=== PATIENT | male | born 1950 | race Caucasian/White ===

== ENCOUNTER 2019-10-16 13:59 | Outpatient (CLI) | payer BC ==
--- NOTE | 2019-10-16 14:42 | ULT ---
US Renal Bilateral STANDARD History: Chronic renal failure stage I Comparison: None. Findings: Real-time grayscale color evaluation of the kidneys and urinary bladder was performed. The right kidney measures 10.6 x 5.2 x 5.3 cm without mass, hydronephrosis or abnormal calcifications . The left kidney measures 10.3 x 5.4 x 5.2 cm without mass, hydronephrosis or abnormal calcifications. Both ureteral jets are seen. The prevoid urinary bladder volume is 499 mL. The post void volume is 24 2 mL. Prostate is mildly enlarged. Impression: 1. No evidence for obstructive uropathy. 2. Increased post void urinary bladder residual of 242 mL. 3. Mild prostatomegaly.
== END 2019-10-16 14:00 | disposition home or self-care (01) ==
LOC: BICULT 13:59
PROVIDERS: ATTEND Urology
DX: N40.1 Benign prostatic hyperplasia with lower urinary tract symptoms (principal); N18.1 Chronic kidney disease, stage 1; R33.9 Retention of urine, unspecified
CPT/HCPCS: 76770

== ENCOUNTER 2019-12-07 06:37 | Outpatient (CLI) | payer BC, OTHER ==
[2019-12-07 10:41] LABS: Bilirubin Neg (Negative); Blood, Urine Negative (Negative); Clarity Clear (Clear); Glucose, Urine (Dipstick) Normal (Negative); Ketone, Urine Negative (Negative); Leukocyte Negative (Negative); Nitrite Negative (Negative); Protein, Urine (Dipstick) Negative (Neg-Trace); Urobilinogen Normal mg/dL (Less than 2)
[2019-12-07 10:44] LABS: Hemoglobin 12.9 g/dL (14.0-18.0); Mean Corpuscular HGB CONC 31.9 G/DL (32.0-36.0); Mean Corpuscular Hemoglobin 30.1 PG (27.0-33.0); Mean Corpuscular Volume 94.4 fl (80.0-100.0); Mean Platelet Volume 9.9 fl (7.4-10.4); Platelet Count 186 10x3/uL (130-400); RBC Distribution Width 14.9 % (11.5-14.5); Red Blood Cell (RBC) Count 4.29 10x6/uL (4.40-5.80); White Blood Cell (WBC) Count 4.1 10x3/uL (4.5-11.0)
[2019-12-07 10:49] LABS: RBC/HPF 0-3 HPF (0-3); Squamous Epithelial None Seen HPF (0-3); WBC/HPF None Seen HPF (0-3)
[2019-12-07 10:50] LABS: Bacteria/HPF None Seen HPF (None Seen)
[2019-12-07 11:05] LABS: Anion Gap 18 mmol/L (10-20); BUN (Urea Nitrogen) 27 mg/dL (8.4-25.7); Calc. Creatinine Clearance 0 mL/min (70-130); Calcium 9.2 mg/dL (7.8-10.44); Carbon Dioxide 21 mmol/L (23-31); Chloride 108 mmol/L (98-107); Estimated GFR-MDRD 39; Glucose 118 mg/dL (83-110); INR-International Normal Ratio 1.1; PTT 26.6 sec (22.0-33.0); Potassium 4.4 mmol/L (3.5-5.1); Prothrombin Time 11.6 sec (9.5-12.1); Sodium 143 mmol/L (136-145)
[2019-12-07 17:49] LABS: SARS-CoV-2 MS2 Positive; SARS-CoV-2 N Gene Negative; SARS-CoV-2 S Gene Negative; SARS-CoV-2 by NAA Not Detected (NotDetected); SARS-CoV-2 orf1ab Negative
--- NOTE | 2019-12-12 19:23 | EKG ---
Test Reason : Blood Pressure : / mmHG Vent. Rate : 072 BPM Atrial Rate : 072 BPM P-R Int : 148 ms QRS Dur : 098 ms QT Int : 410 ms P-R-T Axes : 070 073 040 degrees QTc Int : 448 ms Normal sinus rhythm Normal ECG No previous ECGs available Confirmed by MILAGROS JAMES, DR. Zimmerman ([id number]) on 12/12/2019 7:23:15 PM Referred By: KACY Confirmed By:DR. Erasmo LINARES MD
== END 2019-12-07 06:38 | disposition home or self-care (01) ==
LOC: LABBT 06:37
PROVIDERS: ATTEND Urology
DX: Z01.818 Encounter for other preprocedural examination (principal); Z12.5 Encounter for screening for malignant neoplasm of prostate; E11.22 Type 2 diabetes mellitus with diabetic chronic kidney disease; N18.1 Chronic kidney disease, stage 1; R35.1 Nocturia; N40.1 Benign prostatic hyperplasia with lower urinary tract symptoms; R33.9 Retention of urine, unspecified; R97.20 Elevated prostate specific antigen [PSA]; Z20.828 Contact with and (suspected) exposure to other viral communicable diseases
CPT/HCPCS: 80048; 81001; 85027; 85610; 85730; 87086; 87635; 93005; 93010; U0003

== ENCOUNTER 2019-12-12 05:55 | Day surgery (SDC) | payer BC ==
[2019-12-11 09:23] VITALS: BMI 27.3
[2019-12-12] MEDS ORDERED: Levofloxacin 500 mg/D5W 100 ml Premix Bag ONE (06:07)
[2019-12-12] MEDS ORDERED: Fentanyl 100 MCG/2 ML VIAL ONE (06:14)
[2019-12-12] MEDS ORDERED: Famotidine/PF 20 mg/2ml Vial ONE (06:14)
[2019-12-12] MEDS ORDERED: PROPOFOL 40 ML ONE (06:44)
[2019-12-12] MEDS ORDERED: Midazolam HCl 2 mg/2 ml Vial ONE (06:44)
[2019-12-12] MEDS ORDERED: Metoclopramide HCl 10 MG/2 ML VIAL ONE ×2 (07:18→09:11)
[2019-12-12] MEDS ORDERED: Ondansetron PF 4 MG/2 ML Vial ONE ×2 (07:18→09:11)
--- NOTE | 2019-12-12 08:19 | OP ---
DATE OF PROCEDURE: 12/12/2019 PRIMARY CARE PHYSICIAN: Nilay Maya MD PREOPERATIVE DIAGNOSES: 1. A 69-year-old male with history of elevated PSA, biopsy negative for malignancy. 2. Benign prostatic hyperplasia with chronic incomplete emptying, IPSS score of 15, presenting PVR 348 mL. POSTOPERATIVE DIAGNOSES: 1. A 69-year-old male with history of elevated PSA, biopsy negative for malignancy. 2. Benign prostatic hyperplasia with chronic incomplete emptying, IPSS score of 15, presenting PVR 348 mL. PROCEDURES PERFORMED: Cystoscopy, UroLift implant x7. ANESTHESIA: TIVA. COMPLICATIONS: None apparent. DISPOSITION: To recovery room in stable condition. INDICATIONS FOR PROCEDURE AND HISTORY: Mr. Glaser is a 69-year-old pleasant male, referred to me for BPH symptoms of frequency or urgency with an IPSS score of 15. He has been on dual medical therapy since 2004 and continues to have chronic incomplete emptying. He underwent prostate biopsy negative for malignancy and presents today for UroLift. Alternatives of the procedure including ongoing observation, more definitive procedure such as TURP was discussed with him in detail. With risks and benefits outlined, he desired to proceed with UroLift. Risks and complications of the procedure were discussed with him in detail including, but not limited to, bleeding, pain, infection, injury to adjacent organs, urosepsis, ureteral bladder injury, chronic pain, bleeding. All questions answered to his satisfaction and desired to proceed. DESCRIPTION OF PROCEDURE: After an informed consent was signed, the patient was taken to the operating room, placed in a dorsal lithotomy position with the genital area prepped and draped in the usual surgical sterile fashion. A 21-[place] cystoscope was utilized for cystoscopy, which demonstrated normal anterior urethra. Prostatic urethra again was staged demonstrating bilobar hyperplasia with [id number] obstruction. No intravesical median lobe was noted. Bladder was entered, which demonstrated diffuse bladder trabeculation consistent with chronic outlet obstruction. The UOs were 4 to 5 mm proximal to the bladder neck. At this time, we transitioned to the UroLift implant device with a visual obturator. Once in the bladder, we transitioned to the implant device. We stayed about 1.5 cm proximal to the bladder neck, and total of 3 implants on the left lateral lobe, total of 4 on the right was performed. At the end of the procedure, he had a great anterior channel with wide bladder neck. Minimal bleeding was noted and an 18-Citizen [place] 30 mL Du catheter was placed. We will monitor him for degree of hematuria. Pending postop recovery, the patient may be discharged with indwelling Du catheter for voiding trial tomorrow versus voiding trial in recovery room. Postop medications sent to his pharmacy at [facility]. Job ID: [id number] [id number]
[2019-12-12] MEDS ORDERED: Phenazopyridine HCl 100 MG TAB ONE (09:01)
[2019-12-12] MEDS ORDERED: Lidocaine 1% PF 5 ML VIAL ONE (09:11)
== END 2019-12-12 12:30 | disposition home or self-care (01) ==
LOC: SDC 05:55
PROVIDERS: ATTEND Urology
PROC: 0T7D8DZ Dilation of Urethra with Intraluminal Device, Via Natural or Artificial Opening Endoscopic (ICD-10-PCS; principal; 2019-12-12)
DX: N40.1 Benign prostatic hyperplasia with lower urinary tract symptoms (principal); R39.14 Feeling of incomplete bladder emptying; R35.0 Frequency of micturition; R39.15 Urgency of urination; N39.498 Other specified urinary incontinence; N32.81 Overactive bladder; I12.9 Hypertensive chronic kidney disease with stage 1 through stage 4 chronic kidney disease, or unspecified chronic kidney disease; E11.22 Type 2 diabetes mellitus with diabetic chronic kidney disease; N18.1 Chronic kidney disease, stage 1; E78.5 Hyperlipidemia, unspecified; Z79.84 Long term (current) use of oral hypoglycemic drugs; Z79.899 Other long term (current) drug therapy; Z80.42 Family history of malignant neoplasm of prostate
CPT/HCPCS: C1889; J1956; J2250; J2405; J2704; J2765; J3010; S0028

== ENCOUNTER 2020-11-28 07:45 | Outpatient (CLI) | payer BC, MEDICARE ==
[2020-11-28 09:18] LABS: Hemoglobin 12.7 g/dL (13.5-17.5); Mean Corpuscular HGB CONC 32.2 g/dL (32.0-36.0); Mean Corpuscular Hemoglobin 30.3 pg (27.0-33.0); Mean Platelet Volume 9.2 fl (7.4-10.4); Platelet Count 223 10x3/uL (150-450); RBC Distribution Width 13.6 % (11.5-14.5); Red Blood Cell (RBC) Count 4.19 10x6/uL (4.32-5.72); White Blood Cell (WBC) Count 4.2 10x3/uL (3.5-10.5)
[2020-11-28 09:26] LABS: PTT 24.7 sec (22.0-33.0); Prothrombin Time 11.5 sec (9.5-12.1)
[2020-11-28 09:29] LABS: Bilirubin Neg (Negative); Blood, Urine Negative (Negative); Clarity Clear (Clear); Glucose, Urine (Dipstick) Normal (Negative); Ketone, Urine Negative (Negative); Leukocyte Negative (Negative); Nitrite Negative (Negative); Protein, Urine (Dipstick) Negative (Neg-Trace); Urobilinogen Normal mg/dL (Less than 2)
[2020-11-28 09:39] LABS: Anion Gap 12 mmol/L (10-20); BUN (Urea Nitrogen) 24 mg/dL (8.4-25.7); Calc. Creatinine Clearance 0 mL/min (70-130); Carbon Dioxide 25 mmol/L (23-31); Chloride 109 mmol/L (98-107); Glucose 102 mg/dL (83-110); Potassium 4.5 mmol/L (3.5-5.1); Sodium 141 mmol/L (136-145)
[2020-11-28 10:04] LABS: Bacteria/HPF None Seen HPF (None Seen); RBC/HPF None Seen HPF (0-3); Squamous Epithelial None Seen HPF (0-3); WBC/HPF None Seen HPF (0-3)
[2020-11-28 21:09] LABS: SARS-CoV-2 PCR by NAA Not Detected (NotDetected)
== END 2020-11-28 07:46 | disposition home or self-care (01) ==
LOC: LABBT 07:45
PROVIDERS: ATTEND Urology
DX: Z01.812 Encounter for preprocedural laboratory examination (principal); Z12.5 Encounter for screening for malignant neoplasm of prostate; N40.1 Benign prostatic hyperplasia with lower urinary tract symptoms; E11.22 Type 2 diabetes mellitus with diabetic chronic kidney disease; N18.1 Chronic kidney disease, stage 1; R35.1 Nocturia; R33.8 Other retention of urine; R97.20 Elevated prostate specific antigen [PSA]; Z80.42 Family history of malignant neoplasm of prostate; Z20.822 Contact with and (suspected) exposure to COVID-19
CPT/HCPCS: 80048; 81001; 85027; 85610; 85730; 87086; U0003; U0005

== ENCOUNTER 2020-12-03 08:41 | Observation (INO) | payer BC, MEDICARE ==
[2020-12-02 13:25] VITALS: BMI 28.2
[2020-12-03] MEDS ORDERED: PROPOFOL 200 MG/20 ML VIAL ONE (11:38)
[2020-12-03] MEDS ORDERED: Glycopyrrolate 0.2 MG/ML 5 ML SYRINGE ONE (11:38)
[2020-12-03] MEDS ORDERED: Lidocaine 1% PF 5 ML VIAL ONE (11:38)
[2020-12-03] MEDS ORDERED: Ondansetron PF 4 MG/2 ML Vial ONE (11:38)
[2020-12-03] MEDS ORDERED: PHENYLEPHRINE-NS 100 MCG/ML 10 ML SYRINGE ONE (11:38)
[2020-12-03] MEDS ORDERED: ePHEDrine 50 MG/ML VIAL ONE (11:38)
[2020-12-03] MEDS ORDERED: Fentanyl 100 MCG/2 ML VIAL ONE (11:49)
[2020-12-03] MEDS ORDERED: Midazolam HCl 2 mg/2 ml Vial ONE (11:49)
[2020-12-03] MEDS ORDERED: Levofloxacin 500 mg/D5W 100 ml Premix Bag ONE (11:55)
[2020-12-03] MEDS ORDERED: Morphine 4 MG/ML VIAL SLOW IVP PRN ×2 (14:18→15:06)
[2020-12-03] MEDS ORDERED: HYDROcodone/Acetaminophen 5/325 mg Tablet PO PRN ×2 (14:18)
[2020-12-03] MEDS ORDERED: hydrALAZINE 20 MG/ML VIAL SLOW IVP PRN ×2 (14:18)
[2020-12-03] MEDS ORDERED: Oxybutynin 5 MG TAB PO PRN (14:18)
[2020-12-03] MEDS ORDERED: Mag-Al 1200 mg/1200 mg/30 ML UDCUP PO PRN (14:18)
[2020-12-03] MEDS ORDERED: diphenhydrAMINE 50 MG/ML VIAL IVP PRN (14:18)
[2020-12-03] MEDS ORDERED: Dextrose 5% in Water 1,000 ML IV PRN (14:18)
[2020-12-03] MEDS ORDERED: Ondansetron PF 4 MG/2 ML Vial IVP PRN (14:18)
[2020-12-03] MEDS ORDERED: Insulin Regular 300 UNITS/3 ML VIAL SC PRN (14:18)
[2020-12-03] MEDS ORDERED: Dextrose 50% Abboject 50 ML SYRINGE SLOW IVP PRN (14:18)
[2020-12-03] MEDS ORDERED: Acetaminophen 500 MG TAB PO PRN (14:18)
[2020-12-03] MEDS ORDERED: Oxybutynin 5 MG TAB ONE (14:36)
[2020-12-03] MEDS ORDERED: Phenazopyridine HCl 100 MG TAB PO PRN (15:11)
[2020-12-03 15:16] LABS: #Eosinphils 0.1 thou/uL (0.0-0.7); #Lymphocytes 1.5 thou/uL (1.20-3.40); #Monocytes 0.3 thou/uL (0.11-0.59); %Eosinophils 2.2 % (0.0-10.0); %Lymphocytes 39.2 % (21.0-51.0); %Monocytes 7.6 % (0.0-10.0); Hemoglobin 12.8 g/dL (14.0-18.0); Mean Corpuscular HGB CONC 33.6 g/dL (32.0-36.0); Mean Corpuscular Hemoglobin 32.2 pg (27.0-31.0); Mean Corpuscular Volume 95.8 fL (78.0-98.0); Mean Platelet Volume 6.4 fL (7.4-10.4); Platelet Count 220 thou/uL (130-400); RBC Distribution Width 12.6 % (11.5-14.5); Red Blood Cell (RBC) Count 3.98 mill/uL (4.70-6.10); White Blood Cell (WBC) Count 3.9 thou/uL (4.8-10.8)
[2020-12-03 15:37] LABS: Anion Gap 10 mmol/L (10-20); BUN (Urea Nitrogen) 24 mg/dL (8.4-25.7); Calc. Creatinine Clearance 56 mL/min (70-130); Calcium 8.9 mg/dL (7.8-10.44); Carbon Dioxide 26 mmol/L (23-31); Chloride 110 mmol/L (98-107); Glucose 115 mg/dL (83-110); Potassium 4.4 mmol/L (3.5-5.1); Sodium 142 mmol/L (136-145)
[2020-12-03] MEDS: Sodium Chloride 0.9% 1,000 ML IV SCH ×2 (16:09→21:15)
[2020-12-03] MEDS ORDERED: Fenofibrate Nanocrystallized 145 MG TAB PO SCH (21:00)
[2020-12-03] MEDS ORDERED: [UNRECOGNIZED DRUG - OTHER] PO SCH (21:00)
[2020-12-03] MEDS ORDERED: Tamsulosin HCl 0.4 MG CAP PO SCH (21:00)
[2020-12-03] MEDS ORDERED: Pioglitazone HCl 15 MG TAB PO SCH (21:00)
[2020-12-03] MEDS ORDERED: Atorvastatin Calcium 20 MG TAB PO SCH (21:00)
[2020-12-03] MEDS: Docusate 100 MG CAP PO SCH (21:12)
[2020-12-04 05:32] LABS: #Eosinphils 0.1 thou/uL (0.0-0.7); #Lymphocytes 1.3 thou/uL (1.20-3.40); #Monocytes 0.4 thou/uL (0.11-0.59); #Neutrophils 4.2 thou/uL (1.40-6.50); %Basophils 0.2 % (0.0-1.0); %Eosinophils 1.2 % (0.0-10.0); %Monocytes 6.2 % (0.0-10.0); %Neutrophils 70.5 % (42.0-75.0); Mean Corpuscular Hemoglobin 31.3 pg (27.0-31.0); Mean Corpuscular Volume 94.7 fL (78.0-98.0); Mean Platelet Volume 6.7 fL (7.4-10.4); Platelet Count 217 thou/uL (130-400); RBC Distribution Width 12.6 % (11.5-14.5); Red Blood Cell (RBC) Count 3.83 mill/uL (4.70-6.10)
[2020-12-04 06:03] LABS: Anion Gap 11 mmol/L (10-20); BUN (Urea Nitrogen) 23 mg/dL (8.4-25.7); Calc. Creatinine Clearance 56 mL/min (70-130); Calcium 8.7 mg/dL (7.8-10.44); Carbon Dioxide 25 mmol/L (23-31); Chloride 110 mmol/L (98-107); Glucose 96 mg/dL (83-110); Potassium 4.1 mmol/L (3.5-5.1); Sodium 142 mmol/L (136-145)
[2020-12-04] MEDS ORDERED: cefTRIAXone\\ROCEPHIN 1 GM in Sodium Chloride 0.9% 100 ML IVPB SCH (08:00)
[2020-12-04] MEDS ORDERED: Amlodipine 10 MG TAB PO SCH (09:00)
[2020-12-04] MEDS ORDERED: Tamsulosin HCl 0.4 MG CAP PO SCH (09:00)
[2020-12-04] MEDS ORDERED: Lisinopril 20 MG TAB PO SCH (09:00)
[2020-12-04] MEDS ORDERED: Dutasteride 0.5 MG CAP PO SCH (09:00)
[2020-12-04] MEDS ORDERED: Loratadine 10 MG TAB PO SCH (09:00)
[2020-12-04] MEDS: Docusate 100 MG CAP PO SCH (09:09)
[2020-12-04] MEDS: Sodium Chloride 0.9% 1,000 ML IV SCH (10:44)
[2020-12-04 11:51] VITALS: BP 131/68; TEMP 98.2
== END 2020-12-04 12:15 | disposition home or self-care (01) ==
LOC: SDC 08:41 → SJJU 14:18
PROVIDERS: ADMIT Urology; ATTEND Urology
PROC: 0V507ZZ Destruction of Prostate, Via Natural or Artificial Opening (ICD-10-PCS; principal; 2020-12-03)
DX: N40.1 Benign prostatic hyperplasia with lower urinary tract symptoms (principal); R39.14 Feeling of incomplete bladder emptying; N13.8 Other obstructive and reflux uropathy; N39.41 Urge incontinence; R35.0 Frequency of micturition; R33.8 Other retention of urine; N32.81 Overactive bladder; I12.9 Hypertensive chronic kidney disease with stage 1 through stage 4 chronic kidney disease, or unspecified chronic kidney disease; E11.22 Type 2 diabetes mellitus with diabetic chronic kidney disease; N18.1 Chronic kidney disease, stage 1; E78.5 Hyperlipidemia, unspecified; Z80.42 Family history of malignant neoplasm of prostate; Z79.84 Long term (current) use of oral hypoglycemic drugs; Z79.899 Other long term (current) drug therapy; Z98.890 Other specified postprocedural states
CPT/HCPCS: 36415; 36416; 80048; 85025; 88305; 96374; G0378; J0696; J1956; J2250; J2405; J2704; J3010; J3490; J7050

== ENCOUNTER 2021-06-15 03:31 | Emergency (ER) | payer BC ==
[2021-06-15] MEDS ORDERED: Morphine 4 MG/ML VIAL ONE (04:03)
[2021-06-15] MEDS ORDERED: Ondansetron PF 4 MG/2 ML Vial ONE (04:03)
[2021-06-15 04:08] LABS: #Eosinphils 0.1 thou/uL (0.0-0.7); #Lymphocytes 1.6 thou/uL (1.20-3.40); #Monocytes 0.5 thou/uL (0.11-0.59); #Neutrophils 6.4 thou/uL (1.40-6.50); %Basophils 0.2 % (0.0-1.0); %Eosinophils 1.4 % (0.0-10.0); %Lymphocytes 18.7 % (21.0-51.0); %Monocytes 6.3 % (0.0-10.0); %Neutrophils 73.5 % (42.0-75.0); Hemoglobin 13.9 g/dL (14.0-18.0); Mean Corpuscular HGB CONC 35.4 g/dL (32.0-36.0); Mean Corpuscular Hemoglobin 34.2 pg (27.0-31.0); Mean Corpuscular Volume 96.5 fL (78.0-98.0); Mean Platelet Volume 6.5 fL (7.4-10.4); Platelet Count 238 thou/uL (130-400); RBC Distribution Width 12.6 % (11.5-14.5); Red Blood Cell (RBC) Count 4.07 mill/uL (4.70-6.10); White Blood Cell (WBC) Count 8.6 thou/uL (4.8-10.8)
[2021-06-15 04:36] LABS: ALT (SGPT) 20 U/L (8-55); AST (SGOT) 18 U/L (5-34); Alkaline Phosphatase 47 U/L (40-110); Anion Gap 13 mmol/L (10-20); BUN (Urea Nitrogen) 25 mg/dL (8.4-25.7); Bilirubin, Total 0.7 mg/dL (0.2-1.2); Calc. Creatinine Clearance 0 mL/min (70-130); Calcium 9.4 mg/dL (7.8-10.44); Carbon Dioxide 26 mmol/L (23-31); Chloride 104 mmol/L (98-107); Globulin 2.6 g/dL (2.4-3.5); Glucose 200 mg/dL (83-110); Lipase 46 U/L (8-78); Potassium 3.8 mmol/L (3.5-5.1); Protein, Total 6.6 g/dL (5.8-8.1); Sodium 139 mmol/L (136-145)
[2021-06-15 06:09] LABS: Bacteria/HPF None Seen HPF (None Seen); Bilirubin Negative (Negative); Blood, Urine Negative (Negative); Clarity Turbid (Clear); Glucose, Urine (Dipstick) Normal (Negative); Ketone, Urine Negative (Negative); Leukocyte 500 Leu/uL (Negative); Nitrite Negative (Negative); Protein, Urine (Dipstick) 10 mg/dL (Neg-Trace); RBC/HPF 0-3 HPF (0-3); Specific Gravity, Urine 1.034 (1.002-1.036); Squamous Epithelial None Seen HPF (0-3); Urobilinogen Normal mg/dL (Less than 2); WBC/HPF Greater than 50 HPF (0-3); pH, Urine 6.5 (5.0-9.0)
== END 2021-06-15 06:58 | disposition home or self-care (01) ==
LOC: ERS 03:31
DX: R10.13 Epigastric pain (principal); N39.0 Urinary tract infection, site not specified; R11.2 Nausea with vomiting, unspecified; E78.5 Hyperlipidemia, unspecified; E11.22 Type 2 diabetes mellitus with diabetic chronic kidney disease; I12.9 Hypertensive chronic kidney disease with stage 1 through stage 4 chronic kidney disease, or unspecified chronic kidney disease; N18.1 Chronic kidney disease, stage 1
CPT/HCPCS: 36415; 74177; 80053; 81003; 81015; 83690; 84484; 85025; 87086; 93005; 96374; 96375; J2270; J2405

== ENCOUNTER 2021-10-05 00:41 | Emergency (ER) | payer BC ==
[2021-10-05 01:37] LABS: #Basophils 0.1 thou/uL (0.0-0.2); #Eosinphils 0.1 thou/uL (0.0-0.7); #Lymphocytes 1.4 thou/uL (1.20-3.40); #Monocytes 0.4 thou/uL (0.11-0.59); #Neutrophils 6.3 thou/uL (1.40-6.50); %Basophils 0.7 % (0.0-1.0); %Eosinophils 1.2 % (0.0-10.0); %Lymphocytes 16.6 % (21.0-51.0); %Monocytes 4.6 % (0.0-10.0); %Neutrophils 76.9 % (42.0-75.0); Hemoglobin 13.7 g/dL (14.0-18.0); Mean Corpuscular HGB CONC 34.2 g/dL (32.0-36.0); Mean Corpuscular Hemoglobin 32.4 pg (27.0-31.0); Mean Corpuscular Volume 94.8 fL (78.0-98.0); Mean Platelet Volume 6.7 fL (7.4-10.4); Platelet Count 230 thou/uL (130-400); RBC Distribution Width 12.6 % (11.5-14.5); Red Blood Cell (RBC) Count 4.23 mill/uL (4.70-6.10); White Blood Cell (WBC) Count 8.1 thou/uL (4.8-10.8)
[2021-10-05 01:57] LABS: ALT (SGPT) 21 U/L (8-55); AST (SGOT) 19 U/L (5-34); Albumin 4.2 g/dL (3.4-4.8); Alkaline Phosphatase 49 U/L (40-110); Anion Gap 15 mmol/L (10-20); BUN (Urea Nitrogen) 29 mg/dL (8.4-25.7); Bilirubin, Total 0.4 mg/dL (0.2-1.2); Calc. Creatinine Clearance 0 mL/min (70-130); Calcium 9.3 mg/dL (7.8-10.44); Carbon Dioxide 24 mmol/L (23-31); Chloride 104 mmol/L (98-107); Estimated GFR 42; Globulin 2.6 g/dL (2.4-3.5); Glucose 168 mg/dL (83-110); Lipase 85 U/L (8-78); Potassium 4.1 mmol/L (3.5-5.1); Protein, Total 6.8 g/dL (5.8-8.1); Sodium 139 mmol/L (136-145)
== END 2021-10-05 03:57 | disposition home or self-care (01) ==
LOC: ERS 00:41
DX: R10.13 Epigastric pain (principal); E11.9 Type 2 diabetes mellitus without complications; E78.5 Hyperlipidemia, unspecified; I10 Essential (primary) hypertension; N40.0 Benign prostatic hyperplasia without lower urinary tract symptoms; Z87.891 Personal history of nicotine dependence; Z79.899 Other long term (current) drug therapy; Z79.4 Long term (current) use of insulin
CPT/HCPCS: 36415; 71045; 76705; 80053; 83690; 84484; 85025; 93005

== ENCOUNTER 2021-10-16 10:05 | Outpatient (CLI) | payer BC | END 2021-10-16 10:06 | disposition home or self-care (01) | LOC: DTY/OP 10:05 | PROVIDERS: ATTEND Family Medicine | DX: E66.9 Obesity, unspecified (principal) | CPT/HCPCS: 97802 ==

== ENCOUNTER 2023-03-11 19:01 | Inpatient (IN) | payer MEDICARE, BC ==
[~2023-03-11 19:01] MED LIST: Iopamidol-370 76% 500 ML MDV (1 ML CHARGE) ONE
[2023-03-11 19:43] LABS: #Eosinphils 0.1 thou/uL (0.0-0.7); #Monocytes 0.4 thou/uL (0.11-0.59); #Neutrophils 12.5 thou/uL (1.40-6.50); %Basophils 0.2 % (0.0-1.0); %Eosinophils 0.5 % (0.0-10.0); %Lymphocytes 8.7 % (21.0-51.0); %Monocytes 2.8 % (0.0-10.0); %Neutrophils 87.2 % (42.0-75.0); Hematocrit 41.1 % (42.0-52.0); Hemoglobin 13.2 g/dL (14.0-18.0); Mean Corpuscular HGB CONC 32.1 g/dL (32.0-36.0); Mean Corpuscular Hemoglobin 29.7 pg (27.0-31.0); Mean Corpuscular Volume 92.4 fl (78.0-98.0); Mean Platelet Volume 9.2 fL (7.4-10.4); Platelet Count 278 10x3/uL (130-400); RBC Distribution Width 14.7 % (11.5-14.5); Red Blood Cell (RBC) Count 4.45 mill/uL (4.70-6.10); White Blood Cell (WBC) Count 14.4 10x3/uL (4.8-10.8)
[2023-03-11] MEDS ORDERED: Acetaminophen 500 MG TAB ONE ×2 (20:01→21:48)
[2023-03-11] MEDS ORDERED: Ondansetron ODT 4 MG TAB ONE (20:02)
[2023-03-11] MEDS ORDERED: Ondansetron PF 4 MG/2 ML Vial ONE (20:04)
[2023-03-11 20:05] LABS: ALT (SGPT) 117 U/L (8-55); AST (SGOT) 144 U/L (5-34); Albumin 4.1 g/dL (3.4-4.8); Alkaline Phosphatase 169 U/L (40-110); Anion Gap 14 mmol/L (10-20); BUN (Urea Nitrogen) 22 mg/dL (8.4-25.7); Bilirubin, Total 3.5 mg/dL (0.2-1.2); Calc. Creatinine Clearance 0 mL/min (70-130); Calcium 9.4 mg/dL (7.8-10.44); Carbon Dioxide 25 mmol/L (23-31); Chloride 104 mmol/L (98-107); Estimated GFR 41; Globulin 2.9 g/dL (2.4-3.5); Glucose 255 mg/dL (83-110); Lipase 58 U/L (8-78); Potassium 3.6 mmol/L (3.5-5.1); Sodium 139 mmol/L (136-145)
[2023-03-11] MEDS ORDERED: Piperacillin/Tazobactam 4.5 GM VIAL ONE (21:06)
[2023-03-11] MEDS ORDERED: Sodium Chloride 0.9% 100 ML ONE (21:06)
[2023-03-11 22:49] LABS: Lactic Acid 1.8 mmol/L (0.5-2.2)
[2023-03-11] MEDS ORDERED: Ondansetron PF 4 MG/2 ML Vial IVP PRN (22:49)
[2023-03-11] MEDS ORDERED: Morphine 2 MG/ML VIAL SLOW IVP PRN (22:49)
[2023-03-11] MEDS ORDERED: Ipratropium/Albuterol 3 ML NEB NEB PRN (22:49)
[2023-03-12 00:49] LABS: Bacteria/HPF None Seen HPF (None Seen); Bilirubin 1+ (Negative); Blood, Urine Negative (Negative); CAUTI Indications for Culture Fever or rigors; Clarity Clear (Clear); Glucose, Urine (Dipstick) 500 mg/dL (Negative); Ketone, Urine Negative (Negative); Leukocyte Negative Leu/uL (Negative); Mucous/LPF 1+ LPF (<2+); Nitrite Negative (Negative); Protein, Urine (Dipstick) 20 mg/dL (Neg-Trace); RBC/HPF 0-3 HPF (0-3); Specific Gravity, Urine 1.025 (1.002-1.036); Squamous Epithelial 0-3 HPF (0-3); WBC/HPF 0-3 HPF (0-3)
[2023-03-12 00:50] LABS: Urine Culture Reflex No No
[2023-03-12 01:43] VITALS: BMI 28.6
[2023-03-12] MEDS: Sodium Chloride 0.9% 1,000 ML IV SCH (03:32)
[2023-03-12] MEDS: Piperacillin/Tazobactam 3.375 GM in Sodium Chloride 0.9% 100 ML IVPB SCH (03:33)
[2023-03-12 05:23] LABS: #Monocytes 0.6 thou/uL (0.11-0.59); #Neutrophils 8.1 thou/uL (1.40-6.50); %Basophils 0.1 % (0.0-1.0); %Lymphocytes 8.8 % (21.0-51.0); %Monocytes 5.8 % (0.0-10.0); %Neutrophils 84.8 % (42.0-75.0); Hematocrit 32.2 % (42.0-52.0); Hemoglobin 10.8 g/dL (14.0-18.0); Mean Corpuscular HGB CONC 33.5 g/dL (32.0-36.0); Mean Corpuscular Hemoglobin 30.1 pg (27.0-31.0); Mean Corpuscular Volume 89.7 fl (78.0-98.0); Mean Platelet Volume 9.8 fL (7.4-10.4); RBC Distribution Width 14.8 % (11.5-14.5); Red Blood Cell (RBC) Count 3.59 mill/uL (4.70-6.10); White Blood Cell (WBC) Count 9.5 10x3/uL (4.8-10.8)
[2023-03-12 05:25] LABS: Platelet Count 165 10x3/uL (130-400)
[2023-03-12 05:33] LABS: Anion Gap 12 mmol/L (10-20); BUN (Urea Nitrogen) 21 mg/dL (8.4-25.7); Calc. Creatinine Clearance 55 mL/min (70-130); Calcium 8.2 mg/dL (7.8-10.44); Carbon Dioxide 22 mmol/L (23-31); Chloride 110 mmol/L (98-107); Estimated GFR 49; Glucose 217 mg/dL (83-110); INR-International Normal Ratio 1.2; Potassium 3.6 mmol/L (3.5-5.1); Prothrombin Time 15.1 sec (12.0-14.7); Sodium 140 mmol/L (136-145)
[2023-03-12 05:34] LABS: PTT 31.9 sec (22.9-36.1)
[2023-03-12 05:35] LABS: ALT (SGPT) 148 U/L (8-55); AST (SGOT) 174 U/L (5-34); Albumin 3.3 g/dL (3.4-4.8); Alkaline Phosphatase 143 U/L (40-110); Bilirubin, Direct 2.8 mg/dL (0.1-0.3); Bilirubin, Total 3.6 mg/dL (0.2-1.2); Protein, Total 5.6 g/dL (5.8-8.1)
[2023-03-12] MEDS: Famotidine/PF 20 mg/2ml Vial SLOW IVP SCH (08:14)
[2023-03-12] MEDS ORDERED: Glucagon 1 MG/ML KIT IM PRN (13:30)
[2023-03-12] MEDS ORDERED: Dextrose 5% in Water 1,000 ML IV PRN (13:30)
[2023-03-12] MEDS ORDERED: Dextrose 50% Abboject 50 ML SYRINGE IVP PRN (13:30)
[2023-03-13 05:01] LABS: #Eosinphils 0.1 thou/uL (0.0-0.7); #Monocytes 0.3 thou/uL (0.11-0.59); #Neutrophils 3.3 thou/uL (1.40-6.50); %Basophils 0.2 % (0.0-1.0); %Eosinophils 1.9 % (0.0-10.0); %Lymphocytes 20.8 % (21.0-51.0); %Monocytes 5.7 % (0.0-10.0); %Neutrophils 70.3 % (42.0-75.0); Hematocrit 32.1 % (42.0-52.0); Hemoglobin 10.7 g/dL (14.0-18.0); Mean Corpuscular HGB CONC 33.3 g/dL (32.0-36.0); Mean Corpuscular Hemoglobin 30.6 pg (27.0-31.0); Mean Corpuscular Volume 91.7 fl (78.0-98.0); Mean Platelet Volume 9.8 fL (7.4-10.4); Platelet Count 150 10x3/uL (130-400); White Blood Cell (WBC) Count 4.7 10x3/uL (4.8-10.8)
[2023-03-13 05:10] LABS: INR-International Normal Ratio 1.2; PTT 34.5 sec (22.9-36.1)
[2023-03-13 05:23] LABS: ALT (SGPT) 204 U/L (8-55); AST (SGOT) 194 U/L (5-34); Albumin 3.2 g/dL (3.4-4.8); Alkaline Phosphatase 157 U/L (40-110); Bilirubin, Direct 2.7 mg/dL (0.1-0.3); Bilirubin, Total 3.5 mg/dL (0.2-1.2); Lipase 37 U/L (8-78); Protein, Total 5.7 g/dL (5.8-8.1)
[2023-03-13] MEDS ORDERED: Piperacillin/Tazobactam 3.375 GM VIAL ONE (09:29)
[2023-03-13] MEDS ORDERED: Sodium Chloride 0.9% 100 ML ONE (09:29)
[2023-03-13] MEDS ORDERED: PROPOFOL 20 ML ONE ×2 (10:58→12:00)
[2023-03-13] MEDS ORDERED: fentaNYL PF 100 MCG/2 ML SYRINGE ONE (10:58)
[2023-03-13] MEDS ORDERED: Rocuronium Bromide 10 MG/ML (10ML VIAL) ONE (10:59)
[2023-03-13] MEDS ORDERED: Ondansetron PF 4 MG/2 ML Vial ONE (10:59)
[2023-03-13] MEDS ORDERED: Indomethacin 50 MG SUPP ONE (11:05)
[2023-03-13] MEDS ORDERED: Iopamidol 15 ML ONE (11:09)
[2023-03-13] MEDS ORDERED: SUGAMMADEX SODIUM 200 MG/2 ML VIAL ONE (11:56)
[2023-03-13] MEDS ORDERED: Promethazine HCl 25 MG/ML VIAL IM PRN (12:09)
[2023-03-13] MEDS ORDERED: Ondansetron HCl/PF 4 MG/2 ML Vial IVP PRN (12:09)
[2023-03-13] MEDS: Amlodipine 10 MG TAB PO SCH (14:23)
[2023-03-13] MEDS: hydrALAZINE 20 MG/ML VIAL SLOW IVP PRN (14:24)
[2023-03-13] MEDS: HumaLOG 300 UNITS/3 ML VIAL SC PRN (18:10)
[2023-03-13] MEDS: Fenofibrate Nanocrystallized 145 MG TAB PO SCH (21:45)
[2023-03-14 05:42] LABS: #Eosinphils 0.1 thou/uL (0.0-0.7); #Monocytes 0.2 thou/uL (0.11-0.59); #Neutrophils 2.7 thou/uL (1.40-6.50); %Basophils 0.2 % (0.0-1.0); %Eosinophils 3.1 % (0.0-10.0); %Lymphocytes 23.5 % (21.0-51.0); %Monocytes 5.8 % (0.0-10.0); %Neutrophils 65.9 % (42.0-75.0); Hematocrit 35.1 % (42.0-52.0); Hemoglobin 11.3 g/dL (14.0-18.0); Mean Corpuscular HGB CONC 32.2 g/dL (32.0-36.0); Mean Corpuscular Hemoglobin 29.4 pg (27.0-31.0); Mean Corpuscular Volume 91.4 fl (78.0-98.0); Mean Platelet Volume 9.9 fL (7.4-10.4); Platelet Count 159 10x3/uL (130-400); RBC Distribution Width 15.2 % (11.5-14.5); Red Blood Cell (RBC) Count 3.84 mill/uL (4.70-6.10); White Blood Cell (WBC) Count 4.1 10x3/uL (4.8-10.8)
[2023-03-14 06:12] LABS: ALT (SGPT) 202 U/L (8-55); AST (SGOT) 169 U/L (5-34); Albumin 3.1 g/dL (3.4-4.8); Alkaline Phosphatase 218 U/L (40-110); Anion Gap 12 mmol/L (10-20); BUN (Urea Nitrogen) 10 mg/dL (8.4-25.7); Bilirubin, Total 4.5 mg/dL (0.2-1.2); Calc. Creatinine Clearance 64 mL/min (70-130); Calcium 8.8 mg/dL (7.8-10.44); Carbon Dioxide 23 mmol/L (23-31); Chloride 111 mmol/L (98-107); Estimated GFR 59; Globulin 2.6 g/dL (2.4-3.5); Glucose 148 mg/dL (83-110); Potassium 3.7 mmol/L (3.5-5.1); Protein, Total 5.7 g/dL (5.8-8.1); Sodium 142 mmol/L (136-145)
[2023-03-14] MEDS ORDERED: Bupivacaine 0.25% HCL 30 ML VIAL ONE (07:09)
[2023-03-14] MEDS ORDERED: EPINEPHrine 1 MG/ML VIAL ONE (07:09)
[2023-03-14] MEDS ORDERED: Lidocaine 1% PF 5 ML VIAL ONE (07:32)
[2023-03-14] MEDS ORDERED: Rocuronium Bromide 10 MG/ML (10ML VIAL) ONE (07:32)
[2023-03-14] MEDS ORDERED: PROPOFOL 20 ML ONE (07:32)
[2023-03-14] MEDS ORDERED: fentaNYL PF 100 MCG/2 ML SYRINGE ONE ×2 (07:32→08:21)
[2023-03-14] MEDS ORDERED: PHENYLEPHRINE-NS 100 MCG/ML 10 ML SYRINGE ONE (07:32)
[2023-03-14] MEDS ORDERED: ePHEDrine Sulfate 50 MG/10 ML VIAL ONE (07:32)
[2023-03-14] MEDS ORDERED: Ondansetron PF 4 MG/2 ML Vial ONE (07:33)
[2023-03-14] MEDS ORDERED: Dexamethasone 4 mg/ml Vial ONE (07:33)
[2023-03-14] MEDS ORDERED: Piperacillin/Tazobactam 3.375 GM VIAL ONE (07:39)
[2023-03-14] MEDS ORDERED: Sodium Chloride 0.9% 100 ML ONE (07:40)
[2023-03-14] MEDS ORDERED: Ondansetron HCl/PF 4 MG/2 ML Vial IVP PRN (08:20)
[2023-03-14] MEDS ORDERED: Promethazine HCl 25 MG/ML VIAL IM PRN (08:20)
[2023-03-14] MEDS ORDERED: SUGAMMADEX SODIUM 200 MG/2 ML VIAL ONE (08:47)
[2023-03-14] MEDS: Amlodipine 10 MG TAB PO SCH (10:07)
[2023-03-14] MEDS: traMADol HCl 50 MG TAB PO PRN (10:09)
[2023-03-14] MEDS: Saccharomyces boulardii 250 MG CAP PO SCH (10:09)
[2023-03-14] MEDS: Atorvastatin Calcium 20 MG TAB PO SCH (10:12)
[2023-03-14] MEDS: Piperacillin/Tazobactam 3.375 GM in Sodium Chloride 0.9% 100 ML IVPB SCH (18:11)
[2023-03-15] MEDS: Acetaminophen 325 MG TAB PO PRN (03:31)
[2023-03-15 05:12] LABS: #Monocytes 0.4 thou/uL (0.11-0.59); #Neutrophils 6.5 thou/uL (1.40-6.50); %Basophils 0.1 % (0.0-1.0); %Lymphocytes 16.6 % (21.0-51.0); %Monocytes 4.7 % (0.0-10.0); Hematocrit 31.6 % (42.0-52.0); Hemoglobin 10.4 g/dL (14.0-18.0); Mean Corpuscular HGB CONC 32.9 g/dL (32.0-36.0); Mean Corpuscular Hemoglobin 29.6 pg (27.0-31.0); Mean Platelet Volume 10.3 fL (7.4-10.4); Platelet Count 155 10x3/uL (130-400); Red Blood Cell (RBC) Count 3.51 mill/uL (4.70-6.10); White Blood Cell (WBC) Count 8.4 10x3/uL (4.8-10.8)
[2023-03-15 05:43] LABS: ALT (SGPT) 157 U/L (8-55); AST (SGOT) 74 U/L (5-34); Albumin 3.1 g/dL (3.4-4.8); Alkaline Phosphatase 203 U/L (40-110); Anion Gap 10 mmol/L (10-20); BUN (Urea Nitrogen) 9 mg/dL (8.4-25.7); Bilirubin, Total 2.2 mg/dL (0.2-1.2); Calc. Creatinine Clearance 64 mL/min (70-130); Calcium 8.5 mg/dL (7.8-10.44); Carbon Dioxide 23 mmol/L (23-31); Chloride 106 mmol/L (98-107); Estimated GFR 59; Globulin 2.6 g/dL (2.4-3.5); Glucose 186 mg/dL (83-110); Potassium 3.3 mmol/L (3.5-5.1); Protein, Total 5.7 g/dL (5.8-8.1); Sodium 136 mmol/L (136-145)
[2023-03-15 13:04] VITALS: BP 169/71; TEMP 99.6
== END 2023-03-15 13:25 | disposition home or self-care (01) | DRG 419 ==
LOC: ERS 19:01 → SURG B 22:52
PROVIDERS: ADMIT Surgery; ATTEND Surgery
PROC: 0FC98ZZ Extirpation of Matter from Common Bile Duct, Via Natural or Artificial Opening Endoscopic (ICD-10-PCS; 2023-03-13)
PROC: BF101ZZ Fluoroscopy of Bile Ducts using Low Osmolar Contrast (ICD-10-PCS; 2023-03-13)
PROC: 0FT44ZZ Resection of Gallbladder, Percutaneous Endoscopic Approach (ICD-10-PCS; principal; 2023-03-14)
DX: K80.66 Calculus of gallbladder and bile duct with acute and chronic cholecystitis without obstruction (principal); E78.5 Hyperlipidemia, unspecified; N40.0 Benign prostatic hyperplasia without lower urinary tract symptoms; N18.30 Chronic kidney disease, stage 3 unspecified; E11.22 Type 2 diabetes mellitus with diabetic chronic kidney disease; I12.9 Hypertensive chronic kidney disease with stage 1 through stage 4 chronic kidney disease, or unspecified chronic kidney disease; E66.9 Obesity, unspecified; Z90.49 Acquired absence of other specified parts of digestive tract; Z87.891 Personal history of nicotine dependence; Z68.28 Body mass index [BMI] 28.0-28.9, adult
CPT/HCPCS: 36415; 36416; 71045; 74177; 74181; 74330; 76705; 80048; 80053; 80076; 81001; 83605; 83690; 83880; 85025; 85610; 85730; 86850; 86870; 86900; 86901; 86922; 88304; 93005; 96361; 96365; 96375; C1713; C1889; J0171; J0360; J0665; J1100; J1815; J2405; J2543; J2704; J3490; J7050; Q0162; Q9967; S0028